=== PATIENT | male | born 1950 | race Caucasian/White ===

== ENCOUNTER 2024-09-10 02:04 | Inpatient (IN) | payer MEDICARE, BC, SELFPAY ==
[2024-09-09 18:23] VITALS: BP 121/70
--- NOTE | 2024-09-09 18:28 | ED.GENMED ---
ED Provider Triage
<Jaja Boogie CAPACITOR REPAIRER - Last Filed: 09/09/24 18:32>
-
Patient seen by provider in Triage?: Seen in Triage
Attestation: A medical screening examination has been initiated by a qualified medical provider. Based on the assessment performed at this time, it has been determined that an emergent medical condition may exist and the patient has been informed
that further medical evaluation and possible additional diagnostic testing may be needed.
HPI: 74 yo male w h/o Alzheimer's, takes no meds, here with who states he is here 'for 2 days he has not eaten or drank anything... he says he has diarrhea, he kept going into the bathroom multiple times and would not let me in.' She states he
seemed a little better last night he ate a little something, but then today the aide was there he did not eat or drink anything. 3 nights ago said his stomach hurt and next a.m. is when his symptoms started.
GENERAL: Alert , in no apparent distress
EYE: No visual abnormalities.
NECK: Trachea midline
ENT: No visible abnormalities.
LUNGS: No acute respiratory distress
NEUROLOGICAL: Alert and oriented
SKIN: Skin intact. No visible changes.
MUSCULOSKELETAL: Moving extremities normally
PSYCH: Normal and appropriate interaction.
This is a medical evaluation conducted in person to initiate diagnostic evaluation and provide initial therapeutics. Please see further documentation by the treating clinician.
History of Present Illness
<Jaja Boogie CAPACITOR REPAIRER - Last Filed: 09/09/24 18:32>
General
Chief Complaint: Abdominal Symptoms
Time Seen by Provider: 09/09/24 21:31
<Abdullahi Rodriguez MD - Last Filed: 09/09/24 23:15>
History of Present Illness
History of Present Illness:
Patient is a 74-year-old male with history of Alzheimer's presenting to the emergency department abdominal pain. Given patient's Alzheimer's patient's is at bedside provides all the history. She states that for the past few days has been
having decreased p.o. abdominal pain and diarrhea. It has been black occasionally though otherwise she is unsure as patient does not share the description of the bowel movements. She denies any recent fevers travels or antibiotics. She does state
that while he was in the waiting room he did have some bottle of water which is the most she has had in the past few days. She does state that he is on a daily Benefiber. She denies any recent sick contacts. No nausea or vomiting. Otherwise
history is limited given patient's Alzheimer's.
Past History
<Jaja Boogie CAPACITOR REPAIRER - Last Filed: 09/09/24 18:32>
Past History
ED Past Medical History: None
ED Past Surgical History: None
Phy Exam
<Abdullahi Rodriguez MD - Last Filed: 09/09/24 23:15>
Physical Exam
Physical Exam:
GENERAL: in no acute distress
HEENT: normocephalic, extraocular movements intact, dry oral mucosa
NECK: normal inspection
RESPIRATORY: no respiratory distress, clear to auscultation bilaterally
CARDIOVASCULAR: regular rate and rhythm
ABDOMEN/: soft, non-distended, diffusely tender to palpation, no rebound or guarding
EXTREMITIES: non-tender, no edema/swelling
NEUROLOGIC: awake and alert, moves all extremities
SKIN: warm
Course
<Jaja Boogie CAPACITOR REPAIRER - Last Filed: 09/09/24 18:32>
Orders/Labs/Results
Orders:
Orders
09/09/24 18:33
Complete Blood Count/With Diff Urgent
Comprehensive Metabolic Panel Urgent
Lipase Urgent
09/09/24 21:32
CT Abd/pelvis W Iv Cont Urgent
Comment:
Reason For Exam: abdominal pain, diarrhea
09/09/24 21:33
0.9% Sodium Chloride 1000 ml [Nss] 1,000 ml IV BOLUS
09/09/24 21:52
Urinalysis Reflex To Culture Urgent
Date Specimen was Collected: 09/09/24
Time Specimen was Collected: 18:26
09/09/24 21:54
Stool Culture Urgent
DINORA Source: Feces/Stool
Specimen Description:
09/09/24 23:06
Piperacillin/Tazo 4.5 Gram [Zosyn] 4.5 gram in 100 ml IV NOW
Abnormal Lab Results
09/09/24
18:33
RBC 4.24 L 10^6/uL
(4.70-6.10)
Hgb 12.9 L g/dL
(13.0-18.0)
Hct 37.9 L %
(39.0-52.0)
Monocytes % 10.2 H %
(1.7-9.3)
Glucose 102 H mg/dl
(70-99)
09/09/24 18:33
09/09/24 18:33
Vital Signs
Initial and Last Documented VS:
Initial Vital Signs
Temp Pulse Resp BP Pulse Ox
98.2 F 82 16 121/70 98
09/09/24 18:23 09/09/24 18:23 09/09/24 18:23 09/09/24 18:23 09/09/24 18:23
Last Documented Vital Signs
Temp Pulse Resp BP Pulse Ox
98.2 F 68 20 116/62 99
09/09/24 18:23 09/09/24 22:12 09/09/24 22:12 09/09/24 22:12 09/09/24 22:14
Staceylt;Abdullahi Rodriguez MD - Last Filed: 09/09/24 23:15>
Orders/Labs/Results
Orders:
Orders
09/09/24 18:33
Complete Blood Count/With Diff Urgent
Comprehensive Metabolic Panel Urgent
Lipase Urgent
09/09/24 21:32
CT Abd/pelvis W Iv Cont Urgent
Comment:
Reason For Exam: abdominal pain, diarrhea
09/09/24 21:33
0.9% Sodium Chloride 1000 ml [Nss] 1,000 ml IV BOLUS
09/09/24 21:52
Urinalysis Reflex To Culture Urgent
Date Specimen was Collected: 09/09/24
Time Specimen was Collected: 18:26
09/09/24 21:54
Stool Culture Urgent
DINORA Source: Feces/Stool
Specimen Description:
09/09/24 23:06
Piperacillin/Tazo 4.5 Gram [Zosyn] 4.5 gram in 100 ml IV NOW
Abnormal Lab Results
09/09/24
18:33
RBC 4.24 L 10^6/uL
(4.70-6.10)
Hgb 12.9 L g/dL
(13.0-18.0)
Hct 37.9 L %
(39.0-52.0)
Monocytes % 10.2 H %
(1.7-9.3)
Glucose 102 H mg/dl
(70-99)
09/09/24 18:33
09/09/24 18:33
Vital Signs
Initial and Last Documented VS:
Initial Vital Signs
Temp Pulse Resp BP Pulse Ox
98.2 F 82 16 121/70 98
09/09/24 18:23 09/09/24 18:23 09/09/24 18:23 09/09/24 18:23 09/09/24 18:23
Last Documented Vital Signs
Temp Pulse Resp BP Pulse Ox
98.2 F 68 20 116/62 99
09/09/24 18:23 09/09/24 22:12 09/09/24 22:12 09/09/24 22:12 09/09/24 22:14
<Abdullahi Rodriguez MD - Last Filed: 09/09/24 23:15>
MDM/Problems Addressed
Differential Diagnosis Includes:
74-year-old male with history of Alzheimer's presenting to the emergency department with diarrhea decreased p.o. and abdominal pain for the past 2 days. Vitals unremarkable exam does show diffuse abdominal tenderness. Differential consists of
viral enteritis versus constipation versus obstruction though less likely. Will check blood work urine and CT scan and stool culture. Stool is hemoccult negative. Will give IV fluids.
<Abdullahi Rodriguez MD - Last Filed: 09/09/24 23:15>
*Critical Care Note
Total Time (30-74mins, 75-104mins- exclusive of procedures): Not Applicable
<Abdullahi Rodriguez MD - Last Filed: 09/09/24 23:15>
Update Note
Update Note:
CT scan per my interpretation with significant stool burden. Per the official read he does have perirectal stranding that cannot rule out stercoral colitis. Will initiate antibiotics. Discussed with hospitalist who accepted patient to their
service
ED Attending Note
<Jaja Boogie NP - Last Filed: 09/09/24 18:32>
-
Portions of this chart may have been created with voice recognition software.� Occasional wrong word or��sound alike� substitutions may have occurred due to the inherent limitations of voice recognition software.
Discharge Plan
Departure
Patient Disposition: Admit
Date of Disposition: 09/09/24
Time of Disposition: 23:06
Presentation/result/management discussed w/ accepting MD/DO: Hospitalist
Discharge Problem:
Constipation
Prescriptions:
No Action
No Current Medications
0
Referrals:
UNKNOWN - PT DOES,NOT KNOW [Unknown Provider] -
Interventions
Interventions:
*Risk Screen - Suicide Last Done: 09/09/24 18:23
*General Assessment Last Done: 09/09/24 22:14
*Neglect/Abuse Screening Last Done: 09/09/24 18:23
ED- Fall Risk Assessment Last Done: 09/09/24 22:14
*ED COVID-19 Vaccine History Last Done: 09/09/24 22:14
FT-Iqmrga-Tkdqbcefld Assessment Last Done: 09/09/24 22:14
Discharge Date and Time
Print Language: BOLIVIAN
[2024-09-09 18:57] LABS: % Basophils 0.4 % (0-2); % Eosinophils 0.4 % (0-6); % Immature Granulocytes 0.2 % (0-0.5); % Lymphocytes 25.9 % (20.5-51.1); % Monocytes 10.2 % (1.7-9.3); % Neutrophils 62.9 % (42.2-75.2); Absolute Lymphocytes 1.3 10^3/uL (1.2-3.4); Absolute Monocytes 0.5 10^3/uL (0.1-0.6); Absolute Neutrophils 3.2 10^3/uL (1.4-6.5); Hematocrit 37.9 % (39.0-52.0); Hemoglobin 12.9 g/dL (13.0-18.0); Mean Corpuscular Hgb 30.4 pg (27.0-31.0); Mean Corpuscular Volume 89.4 fL (80.0-94.0); Mean Platelet Volume 10.3 fL (7.4-10.4); Nucleated Red Blood Cells % 0 % (-); Platelet Count 225 10^3/uL (130-400); Red Blood Cell Count 4.24 10^6/uL (4.70-6.10); Red Cell Dist. Width 12.8 % (11.5-14.5)
[2024-09-09 19:15] LABS: ALT (SGPT) 21 U/L (0-50); AST (SGOT) 26 U/L (17-59); Albumin 4.1 g/dl (3.5-5.0); Alkaline Phosphatase 89 U/L (38-126); Blood Urea Nitrogen 16 mg/dl (9-20); Calcium 9.2 mg/dl (8.4-10.2); Carbon Dioxide 24 mmol/L (22-30); Chloride 107 mmol/L (98-107); Glucose 102 mg/dl (70-99); Lipase 94 U/L (23-300); Potassium 4.1 mmol/L (3.5-5.1); Sodium 140 mmol/L (135-145); Total Bilirubin 1.1 mg/dl (0.2-1.3); Total Protein 6.9 g/dl (6.3-8.2); eGFR > 60.00
[2024-09-09 21:57] VITALS: BMI 23.2
[2024-09-09] MEDS: NSS 1000 IV (22:10)
[2024-09-09 22:11] VITALS: BP 116/62
[2024-09-09 22:12] VITALS: BP 116/62
[2024-09-09 23:03] VITALS: BP 116/66
[2024-09-09 23:27] VITALS: BP 123/73
[2024-09-09] MEDS: ZOSYN 100 IV (23:34)
[2024-09-10] VITALS (7 sets, daily range): BP systolic 102–132; BP diastolic 54–75; PULSE 72; O2SAT 98; BMI 23.6
--- NOTE | 2024-09-10 01:41 | HPS.HSE ---
Family Physician
-
Family Physician: Everett Hernandez
Chief Complaint
-
Abd Pain, Poor appetite
History of Present Illness
Patient is a 74y M with PMH significant for SDAT and aphasia who presents to ED for evaluation of abdominal discomfort, loose stools. History obtained from at bedside. Patient has significant difficulty with reliable communication due to
baseline dementia / aphasia. states that patient initially seemed to have some abdominal discomfort Monday PM. Monday he had poor oral intake but otherwise no issues. Monday he was in the bathroom 'all day' and was noted to have some
liquid stool. gave him some PeptoBismol and he seemed to feel better / appetite improved. Today he stayed in bed / slept all day and again would not eat or drink. He was brought to the ED for further evaluation.
states that she has difficulty encouraging him to drink sufficiency fluids on a regular basis.
Medical History
Past Medical History
Past Medical History: Reports Other
Additional Past Medical History:
Alzheimer's Dementia / Aphasia
Anxiety
Prostate Cancer
Past Surgical History: Reports Other
Additional Past Surgical History:
Prostatectomy
T&A
Social History
Tobacco: Former Smoker (Quit smoking 20 years ago.)
Alcohol: None
Personal:
Living: With Family
Family History
Family History: Not pertinent
Allergies / Home Medications
Allergies reflects when Allergies were last updated in [facility].
Home Medications with original date entered in [facility]
Allergy/Medication List:
Allergies
Allergy/AdvReac Type Severity Reaction Status Date / Time
No Known Allergies Allergy Verified 09/09/24 18:25
Home Medications
No Meds [No Current Medications] 09/09/24
Review of Systems
-
History Source: Family
A 12 point ROS was completed and negative except as noted: Yes
Constitutional: Reports Fatigue; Denies Fever
Respiratory: Denies Cough or Trouble Breathing
Cardiac: Denies Chest Pain or Palpitations
Abdomen/GI: Reports Abdominal Pain, Diarrhea and Anorexia; Denies Nausea or Vomiting
: Denies Dysuria or Flank Pain
Musculoskeletal: Denies Joint Pain or Edema
Neurological: Denies Dizzy or Headache
Psych: Reports Dementia
Physical Exam
Vital Signs
Vital Signs
Temp Pulse Resp BP Pulse Ox
98.2 F 71 18 107/75 97
09/09/24 18:23 09/10/24 01:30 09/10/24 01:30 09/10/24 01:01 09/09/24 23:15
Physical Exam
General: Other (74y M resting comfortably in no acute distress.)
HEENT: Other (Dry MM. Neck supple.)
Respiratory: Clear; No Wheezes, Rales or Rhonchi
Cardiac: S1/S2 and Regular Rhythm; No Murmur
GI: Other (Abdomen is softly distended. No evident tenderness or rebound. Pos BS.)
Musculoskeletal: No Clubbing, No Cyanosis and No Edema
Neuro: Awake and Alert; No Oriented
Laboratory Results
-
09/09/24 18:33
09/09/24 18:33
Laboratory Results
Total Bilirubin 1.1 mg/dl (0.2-1.3) 09/09/24 18:33
AST 26 U/L (17-59) 09/09/24 18:33
ALT 21 U/L (0-50) 09/09/24 18:33
Alkaline Phosphatase 89 U/L (38-126) 09/09/24 18:33
Lipase 94 U/L (23-300) 09/09/24 18:33
Impression/Plan
-
A/P: Patient is a 74y M with PMH significant for dementia / aphasia who presents to ED for evaluation of abdominal discomfort and poor appetite.
Stercoral Colitis / Constipation
- Admit for further evaluation and treatment.
- Milk and molasses enema now in the ED.
- Bowel regimen including standing MiraLax and follow for response.
- Observe off of further abx for now and follow temperature curve, etc.
- Follow for clinical improvement.
Senile Dementia with Aphasia and Anxiety
- Stable. Not anxious / agitated at present.
- Not on any chronic medications for memory or mood.
- Follow for any changes.
DVT Prophylaxis: SCDs
Code Status: DNR
[2024-09-10 05:35] LABS: Hematocrit 35.3 % (39.0-52.0); Hemoglobin 12.2 g/dL (13.0-18.0); Mean Corp Hgb Conc. 34.6 g/dL (33.0-37.0); Mean Corpuscular Hgb 30.7 pg (27.0-31.0); Mean Corpuscular Volume 88.7 fL (80.0-94.0); Mean Platelet Volume 10.7 fL (7.4-10.4); Platelet Count 206 10^3/uL (130-400); Red Blood Cell Count 3.98 10^6/uL (4.70-6.10); Red Cell Dist. Width 12.6 % (11.5-14.5); White Blood Cell Count 6.5 10^3/uL (4.8-10.8)
[2024-09-10 05:56] LABS: Blood Urea Nitrogen 15 mg/dl (9-20); Calcium 8.5 mg/dl (8.4-10.2); Carbon Dioxide 23 mmol/L (22-30); Chloride 109 mmol/L (98-107); Estimated Creatinine Clearance 69 ml/min; Glucose 92 mg/dl (70-99); Potassium 3.9 mmol/L (3.5-5.1); Sodium 142 mmol/L (135-145); eGFR > 60.00
--- NOTE | 2024-09-10 06:12 | TRANSFER ---
Received pt from ED @ 0430 w dx stercoral colitis. Pt has SDAT, and asphasic, history unobtainable. VSS, bed alarm in place. Bed on lowest position. Assessment as documented.
[2024-09-10] MEDS: MIRALAX 17 GRAMS PO ×2 (08:02→19:52)
[2024-09-10] MEDS: COLACE 100 MG PO ×2 (08:02→19:52)
--- NOTE | 2024-09-10 08:40 | W.PN.HOSP.TC ---
Today's Communication/Plan
-
see bold
Assessment / Plan
Assessment / Plan
74y M with PMH significant for dementia / aphasia who presents to ED for evaluation of abdominal discomfort and poor appetite.
Stercoral Colitis / Constipation
- S/p Milk and molasses enema in the ED.
- Increase MiraLAX to twice a day, sennosides to twice a day, continue Colace twice a day
- Observe off of further abx for now and follow temperature curve, etc.
- Repeat abdominal x-ray today, possible discharge tomorrow
Senile Dementia with Aphasia and Anxiety
- Stable. Not anxious / agitated at present.
- Not on any chronic medications for memory or mood.
- Follow for any changes.
Abdominal rash
- Denies itchiness, denies pain
� Aquaphor, monitor for now
DVT Prophylaxis: Subcu Lovenox
Code Status: DNR
Updated at bedside 09/09
Physical Exam
General: No acute distress
HEENT: Normocephalic, Atraumatic, EOMI, MMM
Respiratory: Clear to Auscultation bilaterally
Cardiac: Normal S1/S2, Regular Rate and Rhythm
GI: Soft, Nontender, Nondistended, Normal Bowel Sounds
Extremities: No Clubbing, Cyanosis, or Edema
Neuro: Pleasantly confused
Psych: Calm, Cooperative
Derm: Mildly erythematous abdomen
Anticipated Discharge: Within 24 hours
Subjective/Interval History
-
Date of Service: September 10, 2024
Objective Data
-
Labs:
Laboratory Results
09/10/24
04:37
WBC 6.5
Hgb 12.2 L
Hct 35.3 L
Plt Count 206
Sodium 142
Potassium 3.9
Chloride 109 H
Carbon Dioxide 23
BUN 15
Creatinine 0.9
Glucose 92
Calcium 8.5
Vital Signs:
Vital Signs
Temp Pulse Resp BP Pulse Ox
98.1 F 78 16 132/69 98
09/10/24 07:00 09/10/24 07:00 09/10/24 07:00 09/10/24 07:00 09/10/24 07:00
[2024-09-10] MEDS: DULCOLAX 10 MG PO (09:10)
[2024-09-10] MEDS: SENOKOT 17.2 MG PO ×2 (09:11→19:52)
[2024-09-10] MEDS: HYDROPHOR 1 APPLIC TOPICAL (14:33)
--- NOTE | 2024-09-10 15:09 | CM ---
Pt adm with stercoral colitis. PMH - SDAT and aphasia. Patient has significant difficulty with reliable communication due to baseline dementia / aphasia
Spoke with pts Monica Meyers [phone] to complete IA
Pt lives with his in an apartment; 14 steps to enter, FF set-up
Pt is unable to speak. Independent with ADL's with prompting, will do wireless watcher. Has caretakers - M/F - 12 hours (8-8), // - attends day care until 3PM - has care takers after until 8PM, Sat/Sun - has 24 hour care - has medicaid waiver
DME - chair lift
SNF/HH - denies past hx
Will have ride at discharge
PCP - Everett Hernandez
Pharm - [facility]
Plan - anticipate home with VN and coal washer tender/family support
[2024-09-11 07:02] VITALS: BP 112/65
[2024-09-11] MEDS: MIRALAX 17 GRAMS PO (08:10)
[2024-09-11] MEDS: COLACE 100 MG PO ×2 (08:10→19:49)
[2024-09-11] MEDS: SENOKOT 17.2 MG PO ×2 (08:10→19:49)
[2024-09-11] MEDS: HYDROPHOR 1 APPLIC TOPICAL (08:11)
--- NOTE | 2024-09-11 09:18 | W.PN.HOSP.TC ---
Today's Communication/Plan
-
Increase laxatives
Repeat abdominal x-ray today
Assessment / Plan
Assessment / Plan
74y M with PMH significant for dementia / aphasia who presents to ED for evaluation of abdominal discomfort and poor appetite.
Stercoral Colitis / Constipation
- S/p Milk and molasses enema in the ED
- Abdominal x-ray yesterday shows moderate fecal material in the colon, mildly progressed
- Increase MiraLAX to TID, started lactulose TID, continue sennosides to twice a day & Colace twice a day
- Observe off of further abx for now and follow temperature curve, etc.
- Repeat abdominal x-ray today, possible discharge tomorrow
Senile Dementia with Aphasia and Anxiety
- Stable. Not anxious / agitated at present.
- Not on any chronic medications for memory or mood.
- Follow for any changes.
Abdominal rash
- Denies itchiness, denies pain
� Aquaphor, monitor for now
DVT Prophylaxis: Subcu Lovenox
Code Status: DNR
Updated on phone 09/10
Total time spent to see the patient on the floor, examine the patient, review data and lab results, discuss treatment plan with patient, nursing staff around 40 minutes.
Physical Exam
General: No acute distress
HEENT: Normocephalic, Atraumatic, EOMI, MMM
Respiratory: Clear to Auscultation bilaterally
Cardiac: Normal S1/S2, Regular Rate and Rhythm
GI: Soft, Nontender, Nondistended, Normal Bowel Sounds
Extremities: No Clubbing, Cyanosis, or Edema
Neuro: Pleasantly confused
Psych: Calm, Cooperative
Derm: Mildly erythematous abdomen
Anticipated Discharge: Within 24 hours
Subjective/Interval History
-
Date of Service: September 11, 2024
No acute events overnight. Patient continues to have multiple, tiny bowel movements. No fever, no vomiting.
Objective Data
-
Vital Signs:
Vital Signs
Temp Pulse Resp BP Pulse Ox
98.7 F 67 16 112/65 97
09/11/24 07:02 09/11/24 07:02 09/11/24 07:02 09/11/24 07:02 09/11/24 07:02
I&O
09/10/24 09/11/24 09/12/24
06:59 06:59 06:59
Intake Total 240 / 240
Balance 240 / 240
[2024-09-11] MEDS: DUPHALAC/CHRONULAC 20 GRAMS PO (11:35)
[2024-09-11 14:54] VITALS: BP 117/69
--- NOTE | 2024-09-11 15:59 | PTCARENOTE ---
Pt with decreased urine output during this RNs shift. PO intake encouraged. Dr Green made aware. Care remains ongoing.
--- NOTE | 2024-09-11 16:08 | CM ---
Chart reviewed
Repeat abd X-Ray today
Med changes made
Plan - anticipate home with caretakers/family when medically ready
[2024-09-11] MEDS: NSS 1000 IV (16:55)
[2024-09-11 23:01] VITALS: BP 121/72
[2024-09-12 07:15] VITALS: BP 110/54
--- NOTE | 2024-09-12 08:33 | W.PN.HOSP.TC ---
Today's Communication/Plan
-
Start Flomax
Insert Morales
requesting rehab placement
Assessment / Plan
Assessment / Plan
74y M with PMH significant for dementia / aphasia who presents to ED for evaluation of abdominal discomfort and poor appetite.
Stercoral Colitis / Constipation
- S/p Milk and molasses enema in the ED
- Abdominal x-ray 09/11 shows improvement in constipation
- Decrease laxatives
- Observe off of further abx for now and follow temperature curve, etc.
Acute urinary retention
� Patient currently having bowel movements
� Required straight cath x 2 overnight
� Patient continues to retain urine, insert Morales 09/12, start Flomax
Senile Dementia with Aphasia and Anxiety
- Stable. Not anxious / agitated at present.
- Not on any chronic medications for memory or mood.
- requesting placement
Abdominal rash
- Denies itchiness, denies pain
� Aquaphor, monitor for now
DVT Prophylaxis: Subcu Lovenox
Code Status: DNR
Updated on phone 09/11
Total time spent to see the patient on the floor, examine the patient, review data and lab results, discuss treatment plan with patient, nursing staff around 51 minutes.
Physical Exam
General: No acute distress
HEENT: Normocephalic, Atraumatic, EOMI, MMM
Respiratory: Clear to Auscultation bilaterally
Cardiac: Normal S1/S2, Regular Rate and Rhythm
GI: Soft, Nontender, mildly distended, Normal Bowel Sounds
Extremities: No Clubbing, Cyanosis, or Edema
Neuro: Pleasantly confused
Psych: Calm, Cooperative
Derm: Mildly erythematous abdomen
Anticipated Discharge: Within 24 hours
Subjective/Interval History
-
Date of Service: September 12, 2024
Overnight events noted. Patient is having bowel movements, but now having urinary retention, requiring straight cath x 2. No fever, no vomiting.
Objective Data
-
Vital Signs:
Vital Signs
Temp Pulse Resp BP Pulse Ox
98.5 F 82 16 110/54 94
09/12/24 07:15 09/12/24 07:15 09/12/24 07:15 09/12/24 07:15 09/12/24 07:15
I&O
09/11/24 09/12/24 09/13/24
06:59 06:59 06:59
Intake Total 240 / 240 1710 / 1710
Output Total 1700 / 1700
Balance 240 / 240 10 / 10
--- NOTE | 2024-09-12 10:19 | CM ---
Addendum entered by Kaylyn Miller 09/12/24 15:33:
Received call from Rachel [facility] - can accept
[facility] - call in AM for bed availability
Tello Marinelli At [facility] - on VM requesting return call
Pts updated
Plan - SNF when bed obtained
Original Note:
Spoke with pts - requesting SNF
Discussed options with his - requesting referrals be sent to Liana Baron at [facility] and [facility]
Referrals to be sent in [facility]
Plan - anticipate SNF when bed obtained and medially ready for discharge
[2024-09-12] MEDS: COLACE 100 MG PO ×2 (10:37→20:57)
[2024-09-12] MEDS: SENOKOT 17.2 MG PO ×2 (10:37→20:58)
[2024-09-12] MEDS: FLOMAX 0.4 MG PO (10:37)
[2024-09-12] MEDS: MIRALAX 17 GRAMS PO (10:37)
[2024-09-12] MEDS: HYDROPHOR 1 APPLIC TOPICAL (10:38)
[2024-09-12] MEDS: NSS 250 IV (10:39)
[2024-09-12 15:46] VITALS: BP 102/55
[2024-09-12] MEDS: FLUSH (NSS) 2 FLUSH IV (21:00)
[2024-09-12 23:25] VITALS: BP 129/70
[2024-09-12] MEDS: TYLENOL 650 MG PO (23:28)
[2024-09-13 08:00] VITALS: BP 107/73
--- NOTE | 2024-09-13 08:23 | W.PN.HOSP.TC ---
Today's Communication/Plan
-
Discharge to short-term rehab with Mor[facility]
Assessment / Plan
Assessment / Plan
74y M with PMH significant for dementia / aphasia who presents to ED for evaluation of abdominal discomfort and poor appetite.
Stercoral Colitis / Constipation
- S/p Milk and molasses enema in the ED
- Abdominal x-ray 09/11 shows improvement in constipation
- Observe off of further abx for now and follow temperature curve, etc.
- Medically stable for discharge to short-term rehab, continue laxatives upon discharge
Acute urinary retention
� Patient currently having bowel movements
� Required straight cath x 2 overnight
� Patient continues to retain urine, insert Morales 09/12, start Flomax
� Discharge with [facility]ales on Flomax, follow-up with urology in the office in 3-4 days for void trial
Senile Dementia with Aphasia and Anxiety
- Stable. Not anxious / agitated at present.
- Not on any chronic medications for memory or mood.
- requesting placement
Abdominal rash
- Denies itchiness, denies pain
� Aquaphor, monitor for now
DVT Prophylaxis: Subcu Lovenox
Code Status: DNR
Updated on phone 09/11
Physical Exam
General: No acute distress
HEENT: Normocephalic, Atraumatic, EOMI, MMM
Respiratory: Clear to Auscultation bilaterally
Cardiac: Normal S1/S2, Regular Rate and Rhythm
GI: Soft, Nontender, mildly distended, Normal Bowel Sounds
Extremities: No Clubbing, Cyanosis, or Edema
Neuro: Pleasantly confused
Psych: Calm, Cooperative
Derm: Mildly erythematous abdomen
Anticipated Discharge: Today
Subjective/Interval History
-
Date of Service: September 13, 2024
No acute events. No fever, no vomiting. +BM.
Objective Data
-
Vital Signs:
Vital Signs
Temp Pulse Resp BP Pulse Ox
99.2 F 80 16 107/73 95
09/13/24 08:00 09/13/24 08:00 09/13/24 08:00 09/13/24 08:00 09/13/24 08:00
I&O
09/12/24 09/13/24 09/14/24
06:59 06:59 06:59
Intake Total 1710 / 1710 360 / 360
Output Total 1700 / 1700 500 / 500
Balance 10 / 10 -140 / -140
[2024-09-13] MEDS: FLOMAX 0.4 MG PO (10:43)
[2024-09-13] MEDS: MIRALAX 17 GRAMS PO (10:43)
[2024-09-13] MEDS: COLACE 100 MG PO (10:44)
[2024-09-13] MEDS: HYDROPHOR 1 APPLIC TOPICAL (10:44)
[2024-09-13] MEDS: SENOKOT 17.2 MG PO (10:44)
--- NOTE | 2024-09-13 11:12 | CM ---
Addendum entered by Kaylyn Miller 09/13/24 15:07:
Transport at 6:30PM
Notified facility
LM on 's VM regarding transport time
Addendum entered by Kaylyn Miller 09/13/24 14:06:
Spoke with Rachel at [facility] -can accept
Transport to be arranged
Plan - transfer to [facility]
R - [phone]
F - [phone]
Original Note:
Spoke with pts - agreed to [facility] for SNF
Reviewed IMM with pts
Called Rachel at [facility] - will review and return call
Plan - snf when bed confirmed
--- NOTE | 2024-09-13 14:10 | W.DCSUMMARY ---
Discharge Summary
Discharge Data
Date of Admission: 09/10/24
Date of Discharge: 09/13/24
-
Pending Results: No
Hospital Course
Discharge diagnosis:
Severe constipation with stercoral colitis
Acute urinary retention requiring Gunter
Senile dementia
Abdominal rash
Hospital course:
74-year-old male with a past medical history of senile dementia and prostate cancer status post prostatectomy was admitted for severe constipation with stercoral colitis. Patient received an aggressive bowel regimen, and started having multiple
bowel movements. He will be discharged on laxatives. Patient lives with his , who requested that he be set up for short-term rehab.
Patient's hospital course was complicated by acute urinary retention. He required straight cath x 2. A Gunter was inserted. He was started on Flomax. Recommend that his Gunter be removed on 09/17/2024 for void trial at short-term rehab. If he is
not able to void, he would need the Gunter reinserted, and follow-up with urology in the office in 1 week.
Patient is medically stable for discharge. He needs to follow-up with his primary care doctor 1 week after he leaves rehab, and urology in the office in 1 week as well.
Disposition: Short-term rehab
Discharge planning: Required 41 minutes
Discharge Plan
-
Patient Disposition: Fpc/SNF
Discharge Diagnosis/Procedures: Severe constipation, dementia, acute urinary retention requiring gunter
Condition: Fair
Diet: Regular
Activity: As tolerated
Activity Restrictions/Additional Instructions:
Pull gunter on 09/17/24 for void trial. If patient cannot void, re-insert gunter, and follow up with urology in the office.
Follow-up with your primary care doctor 1 week after you leave rehab.
Referrals:
Yobani Brink MD [Active] - in three to four days
Everett Hernandez MD [Family Provider] - in one week
Prescriptions:
New
polyethylene glycol 3350 17 gram/dose powder
17 g PO DAILY Qty: 510 0RF
tamsulosin 0.4 mg Capsule
0.4 mg PO DAILY Qty: 0 0RF
sennosides-docusate sodium [Senna-S] 8.6-50 mg tablet
2 tab-cap PO BID Qty: 120 0RF
Discharge Orders:
Discharge Patient (As Directed); Ordered 09/13/24
Ordered By: Marcus Green
Discharge Date and Time
Print Language: UPPER SORBIAN
[2024-09-13 15:25] VITALS: BP 107/69
== END 2024-09-13 18:50 | DRG 392 ==
LOC: 2 SOUTH 02:04
PROVIDERS: Emergency Medicine; ADMITTING PHYSICIAN Hospitalist; ATTENDING PHYSICIAN Family Medicine; EMERGENCY PHYSICIAN Student in an Organized Health Care Education/Training Program; FAMILY PHYSICIAN Family Medicine
DX: K52.89 Other specified noninfective gastroenteritis and colitis (principal); R47.01 Aphasia; F02.84 Dementia in other diseases classified elsewhere, unspecified severity, with anxiety; K59.00 Constipation, unspecified; R33.9 Retention of urine, unspecified; Z85.46 Personal history of malignant neoplasm of prostate; G30.9 Alzheimer's disease, unspecified; Z87.891 Personal history of nicotine dependence; Z66 Do not resuscitate; Z90.79 Acquired absence of other genital organ(s); R21 Rash and other nonspecific skin eruption
CPT/HCPCS: 74018; 74177; 80048; 80053; 83690; 85025; 85027; 87045; 87046; 87427; 96365; 97116; 97163; 97166; 97530; 97535; 99285; Q9967